=== PATIENT | female | born 1980 | race Caucasian/White ===

== ENCOUNTER → 2020-08-23 | Outpatient (CLI) | payer OTHER ==
--- NOTE | 2020-08-23 17:14 | Diagnostic Imaging Report ---
PROCEDURE: CT maxillofacial without contrast. TECHNIQUE: Multiple contiguous axial images were obtained through the facial bones without the use of intravenous contrast. Auto Exposure Controls were utilized during the CT exam to meet ALARA standards for radiation dose reduction. INDICATION: Recurrent sinusitis. Headache. COMPARISON: None available. FINDINGS: Nasal cavity: No defect in the soft tissue nasal septum. Osseous nasal septum is intact with a leftward deviated spur in its mid aspect. Jessica bullosa are present in the middle turbinates on both sides. No polypoidal mass within the nasal cavity. Paranasal sinuses: Trace mucosal thickening within the alveolar recess of the right maxillary sinus measuring up to 5 mm. Otherwise, the maxillary sinuses are clear. Ethmoid, sphenoid, and frontal sinuses are also clear. Sinus drainage pathways: The bilateral ostiomeatal units are patent. The frontal recesses are clear on both sides. The bilateral sphenoethmoidal recesses are also clear. Other: No intracranial space-occupying mass or hydrocephalus. Orbits are unremarkable. Mastoid air cells are clear. No lymphadenopathy in the neck. No abnormality in the mandible. No nasal bone fracture. IMPRESSION: 1. No features of acute sinusitis. Trace mucosal thickening in the right maxillary sinus. 2. Leftward deviation of the osseous nasal septum. Dictated by: Dictated on workstation # [id number]
== END ==
LOC: RAD 16:45
PROVIDERS: ATTEND Plastic Surgery Plastic Surgery Within the Head and Neck
DX: J32.9 Chronic sinusitis, unspecified (principal); J34.2 Deviated nasal septum
CPT/HCPCS: 70486

== ENCOUNTER → 2020-10-11 | Outpatient (CLI) | payer OTHER ==
--- NOTE | 2020-10-11 12:10 | Diagnostic Imaging Report ---
PROCEDURE: US Non-ob pelvis comp/trans. TECHNIQUE: Multiple Real-time grayscale images were obtained of the pelvis in various projections endovaginally. Transabdominal imaging was also performed. INDICATION: Menorrhagia. COMPARISON: There are no prior studies available for comparison. FINDINGS: The uterus is nongravid and not enlarged measuring 6.5 x 4.6 x 5.4 cm. The endometrial lining is not thickened measuring 5 to 6 mm. Along the uterine body/fundus on the right, there is a 4.1 x 4.1 x 3.1 cm mass. There is a similar-appearing but smaller 1.3 x 1.5 x 1.7 cm mass in the fundus of the uterus. I suspect that these findings are related to fibroids. Neither ovary was identified due to overlying bowel gas. There is no pelvic mass or free fluid collection evident. IMPRESSION: 1. There are two masses involving the body/fundus of the uterus. These are most likely due to fibroid formation. If further evaluation is desired, then laparoscopy should be considered. If there is no intervention at this time, then a short-term (3 month) followup pelvic ultrasound exam should be obtained. 2. There is no acute pelvic abnormality noted. 3. Neither ovary was identified. Dictated by: Dictated on workstation # [id number]
== END ==
LOC: RAD 10:00
PROVIDERS: ATTEND Obstetrics & Gynecology
DX: N92.0 Excessive and frequent menstruation with regular cycle (principal); N85.8 Other specified noninflammatory disorders of uterus
CPT/HCPCS: 76830; 76856

== ENCOUNTER 2020-12-19 05:34 | Outpatient (CLI) | payer OTHER ==
[~2020-12-19] VITALS: Ht 177.8 cm; Wt 118.0 kg
[2020-12-19] MEDS ORDERED: METF-399 PO (10:49)
[2020-12-19] MEDS ORDERED: TOPI50TA13 PO ×2 (10:49)
[2020-12-19] MEDS ORDERED: ASPI-992 PO (10:49)
[2020-12-19] MEDS ORDERED: ATOR40TA70 PO (10:49)
[2020-12-19] MEDS ORDERED: FERR-84 PO (10:49)
[2020-12-19] MEDS ORDERED: RIME75TA PO (10:49)
[2020-12-19] MEDS ORDERED: LIRA0.6P SQ (10:49)
[2020-12-19] MEDS ORDERED: BUPR300T98 PO (10:49)
[2020-12-19] MEDS ORDERED: OMEP40CA6 PO (10:49)
[2020-12-19] MEDS ORDERED: VARE1TAB21 PO (10:49)
== END 2020-12-19 11:36 | disposition home or self-care (01) ==
LOC: PREOP 05:34
PROVIDERS: ATTEND Obstetrics & Gynecology
DX: Z01.818 Encounter for other preprocedural examination (principal)

== ENCOUNTER 2020-12-26 06:01 | Day surgery (SDC) | payer OTHER ==
[2020-12-26] VITALS (11 sets, daily range): BP systolic 102–128; BP diastolic 66–81
[~2020-12-26] VITALS: Ht 177.8 cm; Wt 118.0 kg
[~2020-12-26 06:01] MED LIST: ASPI-992 PO; ATOR40TA70 PO; BUPR300T98 PO; FERR-84 PO; LIRA0.6P SQ; METF-399 PO; OMEP40CA6 PO; RIME75TA PO; TOPI50TA13 PO; VARE1TAB21 PO
[2020-12-26] MEDS ORDERED: metroNIDAZOLE 500MG/100ML IVPB 100 ML IV ONE (06:15)
[2020-12-26] MEDS ORDERED: ceFAZolin 2 GM IV Premixed 50 ML IV ONE (06:15)
[2020-12-26 06:17] LABS: BILIRUBIN,URINE NEGATIVE (NEGATIVE); CLARITY,URINE CLEAR; COLOR,URINE YELLOW; GLUCOSE, URINE (UA) NEGATIVE (NEGATIVE); KETONES,URINE NEGATIVE (NEGATIVE); LEUKOCYTE ESTERASE ,URINE NEGATIVE (NEGATIVE); NITRITE,URINE NEGATIVE (NEGATIVE); PROTEIN,URINE NEGATIVE (NEGATIVE)
[2020-12-26 06:23] LABS: BACTERIA,URINE MODERATE /HPF
[2020-12-26] MEDS: LACTATED RINGERS 1,000 ML IV PRN ×2 (06:34→08:40)
[2020-12-26 06:39] LABS: BASOPHILS % (AUTO) 1 % (0-10); EOSINOPHILS % (AUTO) 0 % (0-10); HEMATOCRIT 40 % (35-52); HEMOGLOBIN 13.4 g/dL (11.5-16.0); LYMPHOCYTES # (AUTO) 2.4 10^3/uL (1.0-4.0); LYMPHOCYTES % (AUTO) 31 % (12-44); MEAN CORPUSCULAR HEMOGLOBIN 29 pg (25-34); MEAN CORPUSCULAR HGB CONC 33 g/dL (32-36); MEAN CORPUSCULAR VOLUME 87 fL (80-99); MEAN PLATELET VOLUME 9.7 fL (9.0-12.2); MONOCYTES # (AUTO) 0.6 10^3/uL (0.0-1.0); MONOCYTES % (AUTO) 7 % (0-12); NEUTROPHILS # (AUTO) 4.8 10^3/uL (1.8-7.8); NEUTROPHILS % (AUTO) 61 % (42-75); PLATELET COUNT 294 10^3/uL (130-400); WHITE BLOOD COUNT 7.9 10^3/uL (4.3-11.0)
[2020-12-26] MEDS ORDERED: FAMOTIDINE 20MG/2ML IV (PEPCID) IV ONE (06:45)
[2020-12-26] MEDS ORDERED: ONDANSETRON 4 MG/2 ML (SDV) Z0FRAN IV ONE (06:45)
[2020-12-26] MEDS ORDERED: SCOPOLAMINE 1.5 MG (TRANSDERM-SCOP) PATCH TOP ONE (06:45)
[2020-12-26] MEDS ORDERED: MIDAZOLAM 2 MG/2 ML (VERSED) VIAL ONE (06:50)
[2020-12-26] MEDS ORDERED: proPOfol 200 MG/20 ML (DIPRIVAN) VIAL IV ONE (06:50)
[2020-12-26] MEDS ORDERED: SEVOFLURANE (ULTANE) 15 ML INHAL SOLN ONE ×3 (06:50→09:53)
[2020-12-26] MEDS ORDERED: ROCURONIUM 10 MG/ML 5 ML SYRINGE IV ONE (06:50)
[2020-12-26] MEDS ORDERED: LIDOCAINE PF 2% 5 ML (XYLOCAINE) VIAL ONE (06:50)
[2020-12-26] MEDS ORDERED: fentaNYL INJ 100 MCG/2 ML AMP ONE (06:50)
[2020-12-26] MEDS ORDERED: LIDOCAINE/EPI 1%-1:100,000 (XYLOCAINE) 20ML ONE (07:21)
--- NOTE | 2020-12-26 07:49 | Progress Note-Pre Operative ---
Pre-Operative Progress Note H&P Reviewed The H&P was reviewed, patient examined and no changes noted. Date Seen by Provider: Dec 26, 2020 Time Seen by Provider: 07:40 Date H&P Reviewed: Dec 26, 2020 Time H&P Reviewed: 07:40 Pre-Operative Diagnosis: abnormal uterine bleeding, fibroids, dysmenorrhea, menorrhagie TOD URBANO DO Dec 26, 2020 07:49
[2020-12-26] MEDS ORDERED: HYDROmorphone 2 MG/ML VIAL (DILAUDID) ONE (08:31)
[2020-12-26] MEDS ORDERED: NEOSTIGMINE 3 MG/3 ML VIAL ONE (09:32)
[2020-12-26] MEDS ORDERED: GLYCOPYRROLATE 0.2 MG/ML (ROBINUL) 2 ML VIAL ONE (09:32)
[2020-12-26] MEDS ORDERED: KETOROLAC 30 MG/ML VIAL ONE (09:37)
[2020-12-26] MEDS ORDERED: LIDOCAINE UROJET 2% GEL 10 ML PKG ONE (09:39)
[2020-12-26] MEDS: KETOROLAC 30 MG/ML VIAL IV SCH ×2 (09:40→15:49)
--- NOTE | 2020-12-26 09:51 | Operative Report ---
Operative Report Date of Procedure/Surgery Dec 26, 2020 Surgeon (s) TOD URBANO DO Line Repairer Tower (s): NA Post-Operative Diagnosis Same periovarian adnesions Procedure Performed CedricNASH ASHISH Description of Procedure Anesthesia Type: General Estimated blood loss (mL): minimal Specimen(s) collected/removed uterus, tubes and ovaries Description of the Procedure After informed consent was obtained, patient was taken into the operating room where general anesthetic was found to be adequate. She was prepped and draped in the usual sterile fashion in the dorsal lithotomy position. A Kwong catheter was placed. A speculum was placed in the vagina. The cervix was visualized and the anterior lip was grasped with a sharp toothed tenaculum. The uterus was sounded and depth was approximately 10 centimeters. I placed the Sharona device (10 cm) and a 3.5 cm collar was advanced over the cervix. I inserted the Sharona without difficulty, inflating the balloon and securing it around the fornix of the cervix. The collar was then secured with sutures at 12 o'clock. Attention was then turned to the patient's abdomen. A supraumbilical incision was made about 8 mm. A Veress needle was inserted and I confirmed intraabdominal placement with a drop in pressure and the saline drop test. The opening pressure was 7 mmHg. I then insufflated the abdomen to a maximum of 15 mmHg with warmed CO2 gas. I placed an additional 8 mm trocar in the left abdomen lateral to the umbilicus approximately 15 cm. The second robotic port was placed about 12 cm lateral to the right placement. This was an 8 mm trocar. These were placed under direct visualization of the laparoscope. 0.25% Marcaine was injected prior to placement of all trocars. When all placements were confirmed, the patient was placed in steep Trendelenburg allowing adequate visualization and the robot was brought in for docking. The docking was accomplished without difficulty. I then took over the command of the robot utilizing the vessel sealer and monopolar tato. I was able to visualize the round ligaments bilaterally and grasped them and cauterized with bipolar cautery and then cut with my tato. There were adhesions of the mesentery to the left pelvic and abdominal sidewall and these needed taken down prior to being able to visualize the infundibu lopelvic ligament. Then, I grasped with infundibulopelvic ligaments bilaterally and transected bilaterally using the vessel sealer. On the right I had to siddest the ovary off the right ovarian fossa before I could continue the dissection in the posterior area. I then moved my dissection to the posterior leaves of the broad ligament. I dissected the posterior leaves of the broad ligament off the uterine arteries skeletonizing them bilaterally. I then took a second clamp with the bipolar cautery and with the tato, transected the vessels away from the lateral aspect to the cervical stroma. I dissected the anterior peritoneum off the lower uterine segment. I continually pushed the bladder back and I took excessively great care and I was eventually able to dissect the vesicouterine peritoneum off the lower uterine segment. I then dissected in a V fashion towards the midline between the uterosacral ligaments. This allowed me to skeletonize the uterine vessels bilaterally. The balloon on the SHARONA was insufflated. This allowed me to see the SHARONA circumferentially. I then performed a colpotomy anteriorly and then amputate with cervix away from the vaginal fornix. I then continued the colpotomy circumferentially. Once this was performed, the assistant professor of art removed the uterus, tubes and ovaries through the vagina. She then left the uterus in the vagina to maintain the pneumoperitoneum. . I then began closure of the vaginal cuff. The uterus was left in the vagina to maintain pneumoperitoneum. I closed the apices of the vaginal cuff with 2-0 Vicryl V lock sutures with a colposuspension through the uterosacral ligaments. This suspended the apices of the vaginal cuff. I extended this to the midline from both sides and overlapped the V lock sutures in the midline. Excellent closure is noted and hemostasis is achieved. All the needles were removed from the patient's abdomen. Now, the robotic instruments were removed and the robot was docked back to laparoscopy. The pelvis was irrigated. There was no active bleeding noted. Bilateral ureters were seen the entire time during the surgery and were peristalsing. There was no excessive bleeding noted. The trocars were removed under direct visualization. The laparoscopic sites were visualized and found to be hemostatic. The trocar sites were injected with 0.25% Marcaine. The skin incisions were closed with 4-0 Monocryl in a subcuticular fashion and then with Dermabond. Op sites were placed over the incision sites. The instruments were removed from the vagina and I noted there were no abrasions. Sponge, lap, needle and instrument counts correct times two. Patient was awakened and taken to recovery in a stable condition. Findings of the Procedure very large fibroids, multiple. Normal tubes and ovaries with adhesions to right ovarian fossa and right pelvic side wall Left mesenteric adhesions Allergies and Home Medications Allergies Coded Allergies: No Known Drug Allergies (Unverified , 12/19/20) Home Medications Acetaminophen 500 Mg Tablet, 1,000 MG PO Q8HR Prescribed by: TOD URBANO on 12/26/20 1143 Aspirin/Acetaminophen/Caffeine 1 Each Tablet, 1-2 EACH PO PRN PRN for PAIN- BREAKTHROUGH, (Reported) Last Action: Converted Atorvastatin Calcium 40 Mg Tablet, 40 MG PO DAILY, (Reported) Last Action: Held Bupropion HCl 300 Mg Tab.er.24h, 300 MG PO DAILY, (Reported) Last Action: Converted Estradiol 1 Each Patch.tdwk, 0.1 MG TD ONCE Prescribed by: TOD URBANO on 12/26/20 1143 Ferrous Sulfate 325 Mg Tablet, 2 TAB PO DAILY, (Reported) Last Action: Held Ibuprofen 600 Mg Tablet, 600 MG PO Q6HR Prescribed by: TOD URBANO on 12/26/20 1143 Liraglutide 0.6 Mg/0.1 Ml Pen.injctr, 0.6 MG SQ DAILY, (Reported) Last Action: Converted Metformin HCl 1,000 Mg Tablet, 1,000 MG PO DAILY, (Reported) Last Action: Converted Omeprazole 40 Mg Capsule.dr, 40 MG PO DAILY, (Reported) Last Action: Converted Oxycodone Hcl 5 Mg Tab, 5 MG PO Q4HR Prescribed by: TOD URBANO on 12/26/20 1145 Rimegepant Sulfate 75 Mg Tab.rapdis, 75 MG PO PRN, (Reported) Last Action: Converted Simethicone 80 Mg Tab.chew, 80 MG PO Q2HR PRN for gas Prescribed by: TOD URBANO on 12/26/20 1143 Topiramate 50 Mg Tablet, 100 MG PO DAILY, (Reported) Last Action: Converted Topiramate 50 Mg Tablet, 100 MG PO HS, (Reported) Last Action: Converted Varenicline Tartrate 1 Each Tab.ds.pk, 1 EACH PO DAILY, (Reported) Last Action: Converted Patient Home Medication List Home Medication List Reviewed: Yes TOD URBANO DO Dec 26, 2020 09:51
[2020-12-26] MEDS ORDERED: morphine INJ 4 MG/ML 1 ML (VIAL/SYRINGE) IVP PRN (10:00)
[2020-12-26] MEDS ORDERED: ONDANSETRON 4 MG (ZOFRAN) ORAL DISSOLVE TAB PO PRN (10:00)
[2020-12-26] MEDS ORDERED: LORATADINE (CLARITIN) 10 MG TAB PO PRN (10:00)
[2020-12-26] MEDS ORDERED: HYDROmorphone 2 MG/ML VIAL (DILAUDID) IV ONE (10:00)
[2020-12-26] MEDS ORDERED: NON-FORMULARY MEDICATION 1 EA EA (Rimegepant Sulfate (Nurtec Odt) 75 MG) PO SCH (10:00)
[2020-12-26] MEDS ORDERED: SIMETHICONE 80 MG (MYLICON) CHEW PO PRN (10:00)
[2020-12-26] MEDS ORDERED: ONDANSETRON 4 MG/2 ML (SDV) Z0FRAN IVP PRN (10:00)
[2020-12-26] MEDS ORDERED: PATIENT MAY USE OWN MEDS, ALL MC SCH (10:00)
[2020-12-26] MEDS ORDERED: ESTRADIOL 0.1 MG PATCH (CLIMARA) TD ONE (10:00)
[2020-12-26] MEDS: LACTATED RINGERS 1,000 ML IV SCH ×2 (10:22→12:02)
[2020-12-26] MEDS ORDERED: ESTRADIOL 0.1 MG PATCH (CLIMARA) ONE (10:24)
[2020-12-26] MEDS ORDERED: inSUlin ASPART (NovoLOG) 1 UNIT/0.01 ML (CHARGE PER UNIT) SC SCH (11:00)
[2020-12-26] MEDS ORDERED: IBUP-844 PO (11:43)
[2020-12-26] MEDS ORDERED: OXC5T PO (11:43)
[2020-12-26] MEDS ORDERED: SMT80CT PO (11:43)
[2020-12-26] MEDS ORDERED: ESTR1PAT73 TD (11:43)
[2020-12-26] MEDS ORDERED: ACET-93 PO (11:43)
--- NOTE | 2020-12-26 11:48 | Discharge Inst-Women's Service ---
Discharge Inst-Women's Serv Depart Medication/Instructions New, Converted or Re-Newed RX: Transmitted to Pharmacy Final Diagnosis uterine fibroid abnormal uterine bleeding Problems Reviewed?: Yes Consults/Follow Up Additional Follow Up: Yes (1-2 weeks and 8-10 weeks) Activity Activity: Activity as Tolerated (no lifting over 25 lbs) Driving Instructions: No Driving for 1 Week NO SMOKING: NO SMOKING Nothing Inside Vagina: No Douching, No Keo, No Tampons Diet Discharge Diet: No Restrictions Symptoms to Report to : Swelling Increased, Bleeding Excessive, Pain Increased, Fever Over 101 Degrees F, Vaginal Bleeding Increase, Cramps in Feet or Legs, Vaginal Discharge Foul For Any Problems or Questions: Contact Your Physician Skin/Wound Care Infection Signs and Symptoms: Increased Redness, Foul Odor of Wound, Increased Drainage, Skin Itchy or Has a Rash, Increased Swelling, Temperature Above 101 F Operative Area Clean and Dry: Keep Incision Clean/Dry Stitches/Humphrey/Dermabond: Dermabond Bathing Instructions: TOD Lew DO Dec 26, 2020 11:48
[2020-12-26] MEDS ORDERED: ACETAMINOPHEN 500 MG TAB (TYLENOL) PO SCH (14:00)
[2020-12-26] MEDS ORDERED: NON-FORMULARY MEDICATION 1 EA EA (Topiramate 100 MG) PO SCH (21:00)
[2020-12-26] MEDS ORDERED: traZODone 50 MG (DESYREL) TAB PO SCH (21:00)
--- NOTE | 2020-12-27 08:28 | Anesthesia-General Post-Op ---
General Patient Condition Mental Status/LOC: Same as Preop Cardiovascular: Satisfactory Nausea/Vomiting: Absent Respiratory: Satisfactory Pain: Controlled Complications: Absent Post Op Complications Complications None Follow Up Care/Instructions Patient Instructions None needed. Anesthesia/Patient Condition Patient Condition Patient is doing well, no complaints, stable vital signs, no apparent adverse anesthesia problems. No complications reported per nursing. MAGDIEL AWAD CRNA Dec 27, 2020 08:28
[2020-12-27] MEDS ORDERED: VARENICLINE TARTRATE PO SCH (09:00)
[2020-12-27] MEDS ORDERED: NON-FORMULARY MEDICATION 1 EA EA (Bupropion HCl (Bupropion Xl) 300 MG) PO SCH (09:00)
[2020-12-27] MEDS ORDERED: NON-FORMULARY MEDICATION 1 EA EA (Metformin HCl 1,000 MG) PO SCH (09:00)
[2020-12-27] MEDS ORDERED: NON-FORMULARY MEDICATION 1 EA EA (Liraglutide (Victoza 2-Pak) 0.6 MG) SQ SCH (09:00)
[2020-12-27] MEDS ORDERED: NON-FORMULARY MEDICATION 1 EA EA (Omeprazole 40 MG) PO SCH (09:00)
[2020-12-27] MEDS ORDERED: NON-FORMULARY MEDICATION 1 EA EA (Topiramate 100 MG) PO SCH (09:00)
[2020-12-27] MEDS ORDERED: IBUPROFEN 600 MG (MOTRIN) TAB PO SCH (12:00)
== END 2020-12-26 17:10 | disposition home or self-care (01) ==
LOC: SDC 06:01 → WS 11:24 → SDC 17:10
PROVIDERS: ATTEND Obstetrics & Gynecology
DX: D25.9 Leiomyoma of uterus, unspecified (principal); N73.6 Female pelvic peritoneal adhesions (postinfective); N83.201 Unspecified ovarian cyst, right side; N72 Inflammatory disease of cervix uteri; N87.9 Dysplasia of cervix uteri, unspecified; N84.1 Polyp of cervix uteri; K21.9 Gastro-esophageal reflux disease without esophagitis; E11.9 Type 2 diabetes mellitus without complications; E66.9 Obesity, unspecified; F32.9 Major depressive disorder, single episode, unspecified; R51.9 Headache, unspecified; Z79.899 Other long term (current) drug therapy; Z79.84 Long term (current) use of oral hypoglycemic drugs; Z80.49 Family history of malignant neoplasm of other genital organs; Z80.0 Family history of malignant neoplasm of digestive organs; Z87.891 Personal history of nicotine dependence; Z68.37 Body mass index [BMI] 37.0-37.9, adult
CPT/HCPCS: 36415; 81000; 82947; 84703; 85025; 86850; 86900; 86901; 87081; 88307; 94664

== ENCOUNTER 2021-05-15 05:38 | Outpatient (RCR) | payer OTHER ==
[~2021-05-15] VITALS: Ht 175.3 cm; Wt 108.0 kg
[~2021-05-15 05:38] MED LIST changes: +ACET-93 PO; +ESTR1PAT73 TD; +IBUP-844 PO; +OXC5T PO; +SMT80CT PO
[2021-05-15] MEDS ORDERED: SYNTEST.HS PO (15:56)
[2021-05-15] MEDS ORDERED: METH36TA12 PO (15:56)
[2021-05-15] MEDS ORDERED: ESTR1TAB27 PO (15:56)
== END 2021-05-15 16:05 | disposition home or self-care (01) ==
LOC: PREOP 05:38 → EDSTATUS 11:00 → PREOP 16:05
PROVIDERS: ATTEND Surgery
DX: Z01.818 Encounter for other preprocedural examination (principal)

== ENCOUNTER 2021-05-22 07:15 | Day surgery (SDC) | payer OTHER ==
[~2021-05-22] VITALS: Ht 175.3 cm; Wt 108.0 kg
[~2021-05-22 07:15] MED LIST changes: +ESTR1TAB27 PO; +METH36TA12 PO; +SYNTEST.HS PO
--- OUTSIDE RECORDS SUMMARY | 2021-05-22 07:18 | XMS REPORT | Clinical Summary ---
Author Author [facility] Organization [facility] Address Unknown Phone Unavailable Care Team Providers Care Title Searcher Name Role Phone Pj Elizabeth PCP Source Comments Some departments are not documenting in the electronic medical record. If you d o not see the information that you expected, contact Release of Information in [facility] [employer] Information Management department at [phone] for further assistan ce in locating additional records.[facility] Allergies No known active allergies Medications End Date Status Medication Sig Dispensed Refills Start Date Active DULOXETINE HCL (CYMBALTA Take by 0 PO) mouth. Active ESCITALOPRAM OXALATE Take by 0 (LEXAPRO PO) mouth. Active PANTOPRAZOLE SODIUM Take by 0 (PANTOPRAZOLE PO) mouth. Active Problems Not on file Social History Date Tobacco Use Types Packs/Day Years Used Current Every Day Smoker Comments Alcohol Use Standard Drinks/Week Not Asked 0 (1 standard drink = 0.6 o z pure alcohol) Sex Assigned at Date Recorded Not on file Last Filed Vital Signs Reading Time Taken Comments Vital Sign 131/85 10/30/2016 5:52 PM CDT Blood Pressure 101 10/30/2016 5:52 PM CDT Pulse 37.1 C (98.7 F) 10/30/2016 5:52 PM CDT Temperature - - Respiratory Rate 100% 10/30/2016 5:52 PM CDT Oxygen Saturation - - Inhaled Oxygen Concentration 117 kg (258 lb) 10/30/2016 5:52 PM CDT Weight - - Height - - Body Mass Index Plan of Treatment Health Maintenance Due Date Last Done Comments HIV SCREENING 1996 DTAP/TDAP VACCINES (1 - 11/05/1999 Tdap) HEPATITIS C SCREENING 11/05/1999 PHYSICAL (COMPREHENSIVE) 11/05/1999 EXAM CERVICAL CANCER SCREENING 2002 INFLUENZA VACCINE 01/07/2021 Results Not on filefrom Last 3 Months Insurance Type Payer Benefit Subscriber ID Effective Phone Address Plan / Dates Group PPO BCBS KIET BCBS KIET [id number] 2016-P [phone] [id number] [place] [phone] [id number] Advance Directives Patient High Lift Driver Explanation Type Date Recorded Advance Directive/DPOA Care Teams Start Date End Date Title Searcher Relationship Specialty 10/30/16 Elizabeth Oliva, PCP - General Family Medicine
[2021-05-22] MEDS ORDERED: LACTATED RINGERS 1,000 ML IV STA (07:36)
[2021-05-22] MEDS ORDERED: HURRICAINE EXT TUBE (BENZOCAINE) XX PRN (07:45)
[2021-05-22] MEDS ORDERED: LACTATED RINGERS 1,000 ML IV ONE (07:49)
[2021-05-22 07:55] VITALS: BP 110/80
--- NOTE | 2021-05-22 08:07 | Progress Note-Pre Operative ---
Pre-Operative Progress Note H&P Reviewed The H&P was reviewed, patient examined and no changes noted. Date Seen by Provider: May 22, 2021 Time Seen by Provider: 08:07 Date H&P Reviewed: May 22, 2021 Time H&P Reviewed: 08:07 Pre-Operative Diagnosis: change in bowel habits, gerd REAGAN PASTOR DO May 22, 2021 08:07
[2021-05-22] MEDS ORDERED: PROPOFOL INJECTION 50 ML IV ONE (08:29)
[2021-05-22] MEDS ORDERED: MIDAZOLAM 2 MG/2 ML (VERSED) VIAL ONE (08:29)
[2021-05-22 09:12] VITALS: BP 113/66
[2021-05-22 09:17] VITALS: BP 109/64
[2021-05-22 09:20] VITALS: BP 108/68
--- NOTE | 2021-05-22 09:22 | Discharge Inst-Simple/Standard ---
Discharge Inst-Standard Patient Instructions/Follow Up Plan of Care/Instructions/FU: Jesus Manuel 2 weeks. Activity as Tolerated: Yes Discharge Diet: Regular Diet REAGAN PASTOR DO May 22, 2021 09:22
[2021-05-22 10:15] VITALS: BP 104/88
--- NOTE | 2021-05-22 12:29 | Anesthesia-General Post-Op ---
MAC Patient Condition Mental Status/LOC: Same as Preop Cardiovascular: Satisfactory Nausea/Vomiting: Absent Respiratory: Satisfactory Pain: Controlled Complications: Absent Post Op Complications Complications None Follow Up Care/Instructions Patient Instructions None needed. Anesthesiology Discharge Order Discharge Order Patient is doing well, no complaints, stable vital signs, no apparent adverse anesthesia problems. No complications reported per nursing. FREDIS TAPIA CRNA May 22, 2021 12:29
--- NOTE | 2021-05-22 16:29 | OPERATIVE REPORT ---
DATE OF SERVICE: 05/22/2021 PREOPERATIVE DIAGNOSES: Change in bowel habits and gastroesophageal reflux disease. POSTOPERATIVE DIAGNOSES: Slight gastritis and colon polyps. PROCEDURES PERFORMED: EGD with biopsies, colonoscopy with cold biopsy polypectomy x1, and hot biopsy polypectomy x2. SURGEON: Reagan Ken DO. ANESTHESIA: Per [employer]. ESTIMATED BLOOD LOSS: None. COMPLICATIONS: None. INDICATIONS FOR PROCEDURE: The patient is a 40-year-old female needing further evaluation for change in bowel habits and GERD. She understands the risks and benefits of the procedure and wishes to proceed. Consent was signed in the chart. DESCRIPTION OF PROCEDURE: The patient was taken to the endoscopy suite and placed in the left lateral recumbent position. Timeout was performed. Scope was inserted in the mouth, down the esophagus, stomach, and duodenum without difficulty. There were no polyps, masses or ulcerations. Scope was slowly retracted back into the stomach, where it was further insufflated. There were slight erythematous changes. Biopsy of the antrum was obtained. Scope was retroflexed noting no other pathology. Scope was returned to its normal position, slowly withdrawn to the distal esophagus. Biopsy of the GE junction was obtained. Scope was slowly retracted back until completely removed noting no other pathology. Digital rectal exam was performed. There were no palpable polyps, masses or ulcerations. Scope was inserted in the rectum, advanced all the way to cecum with minimal difficulty. Prep was adequate with irrigation and suction. In the cecum, there was a very small polyp, which cold biopsy polypectomy was performed. Scope was then continuously and slowly retracted back. At the hepatic flexure, another polyp was present, which hot biopsy polypectomy was performed. Scope was then continuously and slowly retracted back. No polyps, masses or ulcerations in the transverse colon. In the descending colon, a small polyp was present, which hot biopsy polypectomy was performed. No polyps, masses or ulcerations within the remainder of the descending, sigmoid colon, and rectum. Scope was retroflexed noting no other pathology. Scope was returned to its normal position, slowly withdrawn until completely removed. The patient tolerated the procedure well without any complications. She was taken to the recovery room in a stable condition. RECOMMENDATIONS: The patient will continue on current medications. The patient will need a repeat colonoscopy in five years. Any issues before that will be seen at that time. The patient will follow up in office in two weeks to discuss pathology results. CC: Natalia Lobato - requested, unable to deliver. Job ID: [id number] DocumentID: [id number] Dictated Date: 05/22/2021 09:24:43 Lineman Service Or Work Dispatcher Date: 05/22/2021 16:28:16 Dictated By: REAGAN KEN DO
== END 2021-05-22 09:50 | disposition home or self-care (01) ==
LOC: ENDO 07:15
PROVIDERS: ATTEND Surgery
DX: D12.0 Benign neoplasm of cecum (principal); D12.3 Benign neoplasm of transverse colon; D12.4 Benign neoplasm of descending colon; K21.00 Gastro-esophageal reflux disease with esophagitis, without bleeding; K29.70 Gastritis, unspecified, without bleeding; I10 Essential (primary) hypertension; E78.5 Hyperlipidemia, unspecified; E11.9 Type 2 diabetes mellitus without complications; E66.9 Obesity, unspecified; Z68.35 Body mass index [BMI] 35.0-35.9, adult; F32.A Depression, unspecified; F90.9 Attention-deficit hyperactivity disorder, unspecified type; F17.210 Nicotine dependence, cigarettes, uncomplicated; Z79.84 Long term (current) use of oral hypoglycemic drugs; Z79.890 Hormone replacement therapy; Z79.899 Other long term (current) drug therapy

== ENCOUNTER → 2021-06-15 | Outpatient (CLI) | payer OTHER ==
[~2021-06-15] MED LIST changes: +CATHETER FLUSH 10 ML SYR IV PRN
--- NOTE | 2021-06-15 12:24 | Diagnostic Imaging Report ---
INDICATION: Epigastric pain COMPARISON: None available. TECHNIQUE: Anterior scintigraphic imaging of the abdomen was performed after the intravenous administration of 5.45 mCi Tc-99m Choletec. FINDINGS: The upper abdomen was imaged for 60 minutes with the gamma camera. There is prompt homogeneous uptake of radiopharmaceutical by the liver. There is activity in the common duct and gallbladder by 45 minutes. Small bowel activity is seen by 30 minutes. After 60 minutes, the patient received 8 oz of ensure by mouth. After 60 minutes, the gallbladder ejection fraction was calculated to be 63% which is normal. IMPRESSION: 1. Patent common and cystic bile ducts. 2. No gallbladder dysfunction. Dictated by: Dictated on workstation # [id number]
== END ==
LOC: CARD 10:00
PROVIDERS: ATTEND Surgery
DX: K83.5 Biliary cyst (principal)
CPT/HCPCS: 78227; A9537

== ENCOUNTER → 2022-05-28 | Outpatient (CLI) | payer OTHER ==
[~2022-05-28] MED LIST changes: -CATHETER FLUSH 10 ML SYR IV PRN
--- NOTE | 2022-05-28 11:35 | Diagnostic Imaging Report ---
INDICATION: Nausea postprandial. FINDINGS: 1.09 mCi Tc-99m sulfur colloid was tagged with eggs and ingested orally. There is good uptake in the stomach. There is very rapid transit of isotope into the small bowel. One hour shows 86% emptying and two hours shows 90% emptying. Linear fit T-1/2 is 68 minutes. IMPRESSION: There is rapid gastric emptying. There is no evidence of gastroparesis. Dictated by: Dictated on workstation # [id number]
== END ==
LOC: CARD 07:00
PROVIDERS: ATTEND Registered Nurse General Practice
DX: R11.0 Nausea (principal)
CPT/HCPCS: 78264; A9541